=== PATIENT | female | born 1950 | race Hispanic/Latino ===

== ENCOUNTER 2018-09-19 08:16 | Day surgery (SDC) | payer MEDICARE, BC ==
[2018-09-19] MEDS ORDERED: Propofol 10 mg/ml Inj (20 ML) ONE (10:13)
[2018-09-19] MEDS ORDERED: Sodium Chloride 0.9% 1,000 ML IV SCH (11:00)
[2018-09-19 13:14] VITALS: BP 126/74; PULSE 63; RESP 18; TEMP 97.5; O2SAT 97
== END 2018-09-19 13:05 | disposition home or self-care (01) ==
LOC: ENDO 08:16
PROVIDERS: ATTEND Internal Medicine Gastroenterology
DX: R10.12 Left upper quadrant pain (principal); K64.0 First degree hemorrhoids; Z86.010 Personal history of colon polyps
CPT/HCPCS: 45378; J2001; J2704; J7030

== ENCOUNTER 2018-10-30 11:06 | Outpatient (CLI) | payer MEDICARE, BC | END 2018-10-30 11:07 | disposition home or self-care (01) | LOC: LAB 11:06 ==